=== PATIENT | female | born 1960 | race Caucasian/White ===

== ENCOUNTER 2016-10-08 19:01 | Emergency (ER) | payer OTHER ==
[~2016-10-08] VITALS: Ht 160 cm; Wt 100.0 kg
[~2016-10-08 19:01] MED LIST: LEVOTHYROXIN75 MCG PO; LORAZEPAM0.5 MG PO; METFORMIN500 MG PO; MULTIVITAMI1 PO; NAPROSYN500 MG PO; OMEGA 3-6-9 COMPLEX PO; OMEGA-3 FISH1000 MG PO; SERTRALINE50 MG PO
[2016-10-08] MEDS ORDERED: SINGULAIR10 MG PO (19:18)
[2016-10-08] MEDS ORDERED: PROAIR HFA108 MCG/AC (19:18)
[2016-10-08 19:53] LABS: HEMATOCRIT 45.3 % (37.0-47.0); HEMOGLOBIN 14.8 g/dl (12.0-16.0); IMMATURE GRANULOCYTES 0.4 % (0.0-1.0); MEAN CELL VOLUME 84.4 fL CALC (80.0-100.0); MEAN CORPUSCULAR HGB 27.6 pG CALC (26.0-32.0); MEAN CORPUSCULAR HGB CONC 32.7 g/L CALC (32.0-36.0); NEUT# 13.72 thou/uL (2.00-7.15); RED BLOOD COUNT 5.37 mill/uL (4.20-5.60); RED CELL DISTRI WIDTH 14.6 % (11.5-15.5)
[2016-10-08 20:02] LABS: ALBUMIN 4.8 g/dL (3.2-5.0); ALKALINE PHOSPHATASE 68 u/l (38-126); ANION GAP 17 (6-22 (CALC)); BILIRUBIN, TOTAL 0.6 mg/dL (0.0-1.4); BUN 20 mg/dL (7-17); BUN/CREATININE RATIO 36 (12-20 (CALC)); CALCIUM 9.6 mg/dL (8.4-10.2); CARBON DIOXIDE 24 mmol/l (22-30); CHLORIDE 106 mmol/l (95-108); CREATININE 0.5 mg/dL (0.5-1.0); GFR > 60 ML/MIN (>=60 (CALC)); GFR FOR AFR.AMER. > 60 ML/MIN (>=60 (CALC)); GLUCOSE 137 mg/dL (65-105); POTASSIUM 4.1 mmol/l (3.5-5.1); SGOT/AST 27 u/l (14-36); SGPT/ALT 41 u/l (9-52); SODIUM 143 mmol/l (137-146)
[2016-10-08] MEDS ORDERED: ZOFRAN ODT4 MG PO (20:10)
[2016-10-08] MEDS ORDERED: LOMOTIL2.5 MG PO (20:10)
[2016-10-08] MEDS ORDERED: BACTRIM DS1 TAB PO (20:10)
[2016-10-08 21:00] VITALS: BP 118/70
== END 2016-10-08 21:00 | disposition home or self-care (01) | DRG 392 ==
LOC: ED 19:01
PROVIDERS: Emergency Medicine
DX: K52.9 Noninfective gastroenteritis and colitis, unspecified (principal); F32.9 Major depressive disorder, single episode, unspecified; E11.9 Type 2 diabetes mellitus without complications; E03.9 Hypothyroidism, unspecified; F41.9 Anxiety disorder, unspecified; F43.10 Post-traumatic stress disorder, unspecified